=== PATIENT | male | born 1965 | race Caucasian/White ===

== ENCOUNTER 2017-08-13 21:24 | Emergency (ER) | payer OTHER ==
[2017-08-13] MEDS ORDERED: Morphine 10 MG/ML Syringe IM ONE (21:33)
[2017-08-13] MEDS ORDERED: Diphtheria,Pertussis(Acell),Tetanus Vaccine 0.5 ML SDV IM ONE (22:32)
--- NOTE | 2017-08-14 11:15 | CR ---
INDICATION: Right lower leg injury, fell down stairs. RIGHT ANKLE: Three views of the right ankle revealed a spiral fracture of the distal shaft of the tibia with 15 mm lateral offset of the distal tibial fracture fragment. There appears to be overriding of the fracture fragments of approximately 9.3 mm. Also slight lateral angulation is suggested at the fracture site. An additional linear lucency is noted extending into the distal metaphysis of the tibia and may represent a vascular channel. The ankle mortise appears to be fairly intact, although somewhat narrowed laterally, which may be on the basis of a previous injury. There are some mild hypertrophic degenerative changes about the ankle mortise, compatible with posttraumatic osteoarthritis additionally. A large plantar calcaneal spur is noted. IMPRESSION: Tibial fracture with significant deformity. JADED
--- NOTE | 2017-08-14 11:18 | CR ---
INDICATION: Right lower leg injury, fell down stairs. RIGHT TIBIA/FIBULA: Frontal and lateral views of the right tibia and fibula revealed a spiral fracture of the proximal shaft of the fibula with lateral offset of the distal fracture fragment of approximately 6 to 7 mm. Overriding of the fracture fragments may be as much as 14 mm at the fibular fracture site. Distal shaft tibial fracture is again noted, as mentioned in the right ankle x- ray. IMPRESSION: Tibial and fibular fractures with deformity. TAMMY
--- NOTE | 2017-08-14 11:30 | ER ---
DATE SEEN: 08/13/2017 REASON FOR VISIT: Injury of the right lower extremity. HISTORY OF PRESENT ILLNESS: This is a 52-year-old male, who fell and twisted the right ankle. He complains of pain and difficulty with movement. No headache or back injury. REVIEW OF SYSTEMS: All other systems were negative. ALLERGIES: Cats. PHYSICAL EXAMINATION: VITAL SIGNS: Normal blood pressure and pulse. EXTREMITIES/SKIN: Right lower extremity revealed a marked swelling, but neurovascularly intact right lower extremity. There is tenderness to palpation of the distal tibia and proximal fibular area. DIAGNOSTIC STUDIES: X-ray re-confirmed the tibial-fibular fracture that is displaced. IMPRESSION: Displaced tibial-fibular fracture. PLAN: A splint was placed. The patient was given morphine 10 mg IM. I discussed with the ER physician at [facility], and will be transferred by [facility] ambulance for surgical treatment. /[id number] JESU/TERRENCE
== END 2017-08-13 22:50 ==
LOC: FB.ED 21:24
DX: S82.301A Unspecified fracture of lower end of right tibia, initial encounter for closed fracture (principal); S82.831A Other fracture of upper and lower end of right fibula, initial encounter for closed fracture; W10.9XXA Fall (on) (from) unspecified stairs and steps, initial encounter
CPT/HCPCS: 73590; 73610; 90471; 90715; 96372; 99284; J2270